=== PATIENT | female | born 1955 | race African-American/Black ===

== ENCOUNTER 2016-09-22 09:15 | Emergency (ER) | payer BC, OTHER ==
[~2016-09-22] VITALS: Ht 162.6 cm; Wt 71.0 kg
[2016-09-22 09:24] VITALS: BP 146/84; PULSE 78; RESP 16; TEMP 99.5; O2SAT 98
--- NOTE | 2016-09-22 11:29 | PD ---
HPI Chief Complaint: Cold / Flu Symptoms Time Seen by Provider: 11:29 Travel History International Travel<30 days: No Contact w/Intl Traveler<30days: No Traveled to known affect area: No History of Present Illness HPI 60-year-old female presents to the emergency Department with complaint of cough , headache, nausea, body aches, nasal congestion since yesterday. Cough is dry. Denies ear pain or throat pain. Has tried DayQuil with no relief of symptoms. Took Tylenol last night for headache with minimal symptom relief. Reports chills. Denies shortness of breath. Has not taken temperature and cannot report a MAXIMUM TEMPERATURE. Reports subjective fever. Reports nausea without vomiting. Denies abdominal pain. The thought of food makes the nausea worse. Did not receive influenza vaccine this year. Denies significant past medical history. Denies allergies. No current medications. No other modifying factors or associated signs and symptoms. PFSH Past Medical History Medical History: Denies Significant Hx Influenza Vaccination: No ?: Not Past Surgical History Surgical History: No Previous Surgery Social History Alcohol Use: Yes (rarely) Tobacco Use: No Substance Use: No Allergies-Medications (Allergen,Severity, Reaction): Coded Allergies: No Known Allergies (Unverified , 09/22/16) Reported Meds & Prescriptions Reported Meds & Active Scripts Active No Active Prescriptions or Reported Medications Review of Systems Except as stated in HPI: all other systems reviewed are Neg Physical Exam Narrative GENERAL: Well-nourished, well-developed female patient, in no acute distress SKIN: Warm and dry. No rash. HEAD: Atraumatic. Normocephalic. EYES: Pupils equal and round at 3 mm with brisk reaction. No scleral icterus. No injection or drainage. PERRLA. ENT: Mucosa pink and moist. No erythema or exudates. No uvular edema. No uvular , palatal, or tonsillar deviation. Airway patent. EARS: Bilateral pinnae and external canals appear within normal limits. Bilateral tympanic membranes without erythema, dullness or perforation. NECK: Trachea midline. No lymphadenopathy. CARDIOVASCULAR: Regular rate and rhythm. No murmur appreciated. RESPIRATORY: No accessory muscle use. Clear to auscultation. Breath sounds equal bilaterally. GASTROINTESTINAL: Abdomen soft, non-tender, nondistended. Hepatic and splenic margins not palpable. Bowel sounds are active 4 quadrants. MUSCULOSKELETAL: No obvious deformities. No clubbing. No cyanosis. No edema. NEUROLOGICAL: Awake and alert. Oriented 3. No obvious cranial nerve deficits. Motor grossly within normal limits. Normal speech. Moves all extremities. 5/5 strength to all extremities. PSYCHIATRIC: Appropriate mood and affect; insight and judgment normal. Data Data Last Documented VS Vital Signs Date Time Temp Pulse Resp B/P Pulse Ox O2 Delivery O2 Flow Rate FiO2 09/22/16 09:24 99.5 78 16 146/84 98 Orders Influenzae A/B Antigen (09/22/16 11:29) Ibuprofen (Motrin) (09/22/16 11:30) Ondansetron Odt (Zofran Odt) (09/22/16 11:30) [facility] Medical Decision Making Medical Screen Exam Complete: Yes Emergency Medical Condition: Yes Medical Record Reviewed: Yes Differential Diagnosis Influenza, viral illness, URI Narrative Course 60-year-old female physical exam consistent with viral illness. Afebrile in ER. Nontoxic appearing. Reports subjective fever. Reports nausea without vomiting. Reports headache. Lung sounds are clear and equal throughout. Ibuprofen and Zofran administered in ER. Influenza ordered. 1216: Influenza negative. Discussed viral illness and symptom management with patient and she will rule out his understanding and agreement. Ibuprofen, Zofran, nasal neck nasal spray prescribed for home. Patient is medically cleared and stable for discharge. Discussed reasons to return to the emergency department. Instructed patient to follow up with primary care provider. Patient agrees with treatment plan. The patients vital signs are stable and the patient is stable for outpatient follow-up and treatment. Patient discharged home, stable and in no acute distress. Diagnosis Primary Impression: Viral illness Referrals: Primary Care Physician Patient Instructions: Cold Symptoms (ED), General Instructions, Safe Use of Cough and Cold Medicines (ED) Additional Instructions: Ibuprofen or Tylenol as directed and as needed to reduce fever Get plenty of sleep/rest Drink plenty of fluids to prevent dehydration [place] diet to encourage nutrition such as crackers, fruit, applesauce, toast, soup etc. Use an air humidifier/turn off ceiling fans Follow-up with your primary care provider within 1 day Return immediately to the emergency department with worsening of symptoms Med/Other Pt SpecificInfo: Prescription(s) given Scripts Benzonatate (Tessalon Perles)100 Mg [id number] Mg PO TID PRN (COUGH) #21 CAP Ref 0 Prov:Elida ChesterP 09/22/16 Ibuprofen 800 Mg [id number] Mg PO Q6HR PRN (PAIN) #30 TAB Ref 0 Prov:Elida Chester 09/22/16 Mometasone Nasal [place] (Nasonex Nasal [place])50 Mcg/Act Naspr2 [place] EACH NARE DAILY PRN (NASAL CONGESTION) #1 BOTTLE Ref 0 Prov:Elida Chester 09/22/16 Ondansetron Odt (Zofran Odt)4 Mg Tab4 Mg SL Q8HR PRN (Nausea/Vomiting) #10 TAB Ref 0 Prov:Elida Chester 09/22/16 Disposition: 01 DISCHARGE HOME Condition: Stable Elida Chester Sep 22, 2016 11:29
[2016-09-22] MEDS ORDERED: IBUPROFEN 800 MG TAB PO ONE (11:30)
[2016-09-22] MEDS ORDERED: ONDANSETRON ODT 4 MG TAB PO ONE (11:30)
[2016-09-22] MEDS ORDERED: BENZ100 PO (12:17)
[2016-09-22] MEDS ORDERED: ZOFR4TAB3 SL (12:17)
[2016-09-22] MEDS ORDERED: IBUP800T23 PO (12:17)
[2016-09-22] MEDS ORDERED: MOME17I EACH NARE (12:17)
== END 2016-09-22 12:30 | disposition home or self-care (01) ==
LOC: PHED 09:15 → PHEFT 12:30
DX: B34.9 Viral infection, unspecified (principal)
CPT/HCPCS: 87804; 99284